=== PATIENT | male | born 1945 | race Asian ===

== ENCOUNTER 2022-03-16 22:00 | Emergency (ER) | payer SELFPAY ==
[~2022-03-16] VITALS: Ht 170.2 cm; Wt 87.0 kg
[2022-03-16 23:38] LABS: BASOPHILS % 1.1 % (0.0-2.0); EOSINOPHILS % 3.6 % (0.0-5.0); HEMATOCRIT. 45.8 % (42.0-52.0); HEMOGLOBIN. 15.5 g/dL (14.0-18.0); MEAN CORPUSCULAR HEMOGLOBIN 31.3 pg (28.0-32.0); MEAN CORPUSCULAR VOLUME 92.4 fL (80.0-94.0); MONOCYTES % 9.5 % (2.0-8.0); NEUTROPHILS % 56.8 % (40.0-76.0); PLATELET 186 x1000/uL (130-400); RED BLOOD CELL COUNT 4.96 mill/uL (4.7-6.1); RED CELL DISTRIBUTION WIDTH 13.7 % (11.6-14.6)
[2022-03-16 23:49] LABS: PROTHROMBIN TIME 10.4 sec (9.6-11.0)
[2022-03-16 23:50] LABS: CHLORIDE 108 mEq/L (98-107)
[2022-03-17 02:11] LABS: CLARITY URINE CLEAR (CLEAR); COLOR URINE YELLOW (YELLOW); KETONES URINE 1+ (NEGATIVE); LEUKOCYTE ESTERASE URINE NEGATIVE (NEGATIVE); NITRITE URINE NEGATIVE (NEGATIVE); OCCULT BLOOD URINE NEGATIVE (NEGATIVE); PH URINE 5.5 (4.5-8.0); PROTEIN URINE NEGATIVE (NEGATIVE); SPECIFIC GRAVITY URINE 1.021 (1.005-1.030); UROBILINOGEN URINE 0.2 E.U./dL (0.2-1.0)
[2022-03-17] MEDS ORDERED: KETOROLAC 15MG/ML VIAL IV ONE (02:45)
[2022-03-17 04:15] VITALS: BP 138/75
[2022-03-17] MEDS ORDERED: HYDROCODONE/ACETAMINOPHEN 10/325MG TABLET PO ONE (04:15)
== END 2022-03-17 04:49 | disposition home or self-care (01) ==
LOC: ER 22:00
DX: R10.9 Unspecified abdominal pain (principal); R10.33 Periumbilical pain
CPT/HCPCS: 36415; 74176; 80053; 81003; 85025; 93005; 99285